=== PATIENT | male | born 1975 | race African-American/Black ===

== ENCOUNTER → 2020-03-16 10:27 | Outpatient (CLI) | payer OTHER, SELFPAY ==
--- NOTE | 2020-03-16 10:29 | DI.RAD.S_ITS ---
PROCEDURE: XR FOOT RT MIN 3V INDICATIONS: rolled ankle, L I, r/o bony abnormality TECHNIQUE: 3 views of the foot were acquired. COMPARISON: [facility], , XR ANKLE RT MIN 3V, 03/16/2020, 10:30. FINDINGS: Bones: No fractures or dislocations. No suspicious bony lesions. Accessory ossicles are seen, including an os peroneum, an os tibiale externum, and an os trigonum. Age-appropriate bony degenerative changes are seen. Plantar and Achilles calcaneal spurs are seen. Soft tissues: No tibiotalar joint effusion. Achilles tendon appears normal. IMPRESSION: No acute fractures are seen, including involving the proximal 5th metatarsal. If there is point tenderness (or other clinical suspicion for a fracture not seen on these images) please consider a dedicated CT for further evaluation. Age-appropriate bony degenerative changes are seen. Dictated by: Clyde Peacock M.D. on 03/16/2020 at 9:48 Approved by: Clyde Peacock M.D. on 03/16/2020 at 9:49
--- NOTE | 2020-03-16 10:29 | DI.RAD.S_ITS ---
PROCEDURE: XR ANKLE RT MIN 3V INDICATIONS: rolled ankle, L I, clinical concern for bony abnormality TECHNIQUE: 3 views of the ankle were acquired. COMPARISON: [facility], , XR FOOT RT MIN 3V, 03/16/2020, 10:30. FINDINGS: Bones: No fractures or dislocations. Ankle mortise is normally aligned. No suspicious bony lesions. Incidental note is made of an accessory ossicle, an os trigonum. Plantar and Achilles calcaneal spurs are seen. The talar dome demonstrates no casey abnormality. Soft tissues: No significant soft tissue abnormality is seen. IMPRESSION: No acute bony abnormality is seen. If there is point tenderness (or other clinical suspicion for a fracture not seen on these images) then a dedicated CT could be considered for further evaluation, if clinically appropriate. Dictated by: Clyde Peacock M.D. on 03/16/2020 at 9:46 Approved by: Clyde Peacock M.D. on 03/16/2020 at 9:47
== END ==
PROVIDERS: Referring Provider Physician Assistant; Visit Provider Physician Assistant
DX: S99.911A Unspecified injury of right ankle, initial encounter (principal); X58.XXXA Exposure to other specified factors, initial encounter
CPT/HCPCS: 73610; 73630